=== PATIENT | male | born 1955 | race Caucasian/White ===

== ENCOUNTER 2020-02-02 11:30 | Inpatient (IN) ==
[2020-02-02] MEDS: QUEtiapine Fumarate 25 MG TABLET PO SCH (20:48)
[2020-02-02] MEDS: Lactobacillus 1 EACH CAP.SPRINK PO SCH (20:49)
[2020-02-02] MEDS: *HR* Amiodarone 200 MG TABLET PO SCH (20:49)
[2020-02-02] MEDS: Nystatin SUSP 5 ML UD.LIQ PO SCH (20:52)
[2020-02-02] MEDS: Artificial Tears SOLN 15 ML BOTTLE BOTH EYES SCH (20:57)
[2020-02-02] MEDS ORDERED: NON-FORMULARY MEDICATION 1 EACH EACH (Lactose-Reduced Food [Ensure Liquid] 1 BOTTLE) PO SCH (21:00)
[2020-02-02] MEDS: Levalbuterol Neb 0.63 MG/3 ML IH SCH ×2 (22:54→22:55)
[2020-02-02] MEDS: Budesonide/Formoterol 80/4.5 1 PUFF INH IH SCH (22:55)
[2020-02-02] MEDS: Ipratropium Neb 0.5 MG NEBULIZER IH SCH ×3 (22:55→23:03)
[2020-02-03] MEDS: Ipratropium Neb 0.5 MG NEBULIZER IH SCH ×6 (03:10→21:03)
[2020-02-03] MEDS: Levalbuterol Neb 0.63 MG/3 ML IH SCH ×6 (03:10→21:04)
[2020-02-03 07:24] LABS: Basophils # 0.1 K/mcL (0.0-0.2); Basophils % 0.4 %; Eosinophils # 0.2 K/mcL (0.0-0.6); Eosinophils % 1.1 %; Hematocrit 33.1 % (37.5-50.1); Hemoglobin 10.3 g/dL (12.9-16.9); Immature Granulocytes % 3.9 % (0-4); Lymphocytes # 1.4 K/mcL (0.6-4.6); Lymphocytes % 8.5 %; Mean Corpuscular HGB Conc 31.1 g/dL (31.6-35.5); Mean Corpuscular Hemoglobin 23.1 pg (28.0-33.3); Mean Corpuscular Volume 74.4 fL (83.0-100.0); Mean Platelet Volume 9.3 fL (9.4-12.4); Monocytes # 1.7 K/mcL (0.0-1.3); Monocytes % 10.8 %; Neutrophils # 12.1 K/mcL (1.6-8.9); Nucleated Red Blood Cells 0.2 /100 WBC (0); Platelet Count 279 K/mcL (140-400); Red Blood Count 4.45 M/mcL (4.19-5.50); Red Cell Distribution Width 24.2 % (11.5-14.5); Segmented Neutrophils % 75.3 %; White Blood Count 16.1 K/mcL (4.3-11.1)
[2020-02-03 07:25] LABS: eGFR For African Americans > 60 (> 60); eGFR For Non-African Americans > 60 (> 60)
[2020-02-03 07:35] LABS: Activated Partial Thrombo Time 24.6 Seconds (26.0-36.0); INR 1.1; Prothrombin Time 12.3 Seconds (9.4-12.1)
[2020-02-03] MEDS: Nystatin SUSP 5 ML UD.LIQ PO SCH ×4 (07:46→21:02)
[2020-02-03] MEDS: Lactobacillus 1 EACH CAP.SPRINK PO SCH ×2 (07:48→21:02)
[2020-02-03] MEDS: Nicotine 14 MG PATCH.TD24 TD SCH (07:48)
[2020-02-03] MEDS: *HR* Amiodarone 200 MG TABLET PO SCH ×2 (07:48→21:03)
[2020-02-03] MEDS: Aspirin Enteric Coated 81 MG Tablet PO SCH (07:48)
[2020-02-03] MEDS: Artificial Tears SOLN 15 ML BOTTLE BOTH EYES SCH ×4 (07:48→21:07)
[2020-02-03] MEDS: *HR* Digoxin 0.125 MG TABLET PO SCH (07:48)
[2020-02-03] MEDS: Metoprolol XL (24 HR) Succ 50 MG TAB.ER.24H PO SCH (07:49)
[2020-02-03] MEDS: Multivit/Ca/Min/Fe/FA 1 TAB TABLET PO SCH (07:49)
[2020-02-03] MEDS: Azithromycin 250 MG TABLET PO SCH (07:49)
[2020-02-03 07:59] LABS: Anisocytosis 1+ (Not Present); Platelet Estimate Normal (Normal); Toxic Granulation Present (Not Present)
[2020-02-03] MEDS ORDERED: predniSONE 10 MG TABLET PO SCH (09:00)
[2020-02-03] MEDS: Budesonide/Formoterol 80/4.5 1 PUFF INH IH SCH ×2 (09:54→21:04)
[2020-02-03] MEDS: clonazePAM 0.5 MG TABLET PO SCH ×2 (18:24→22:20)
[2020-02-03] MEDS: predniSONE 10 MG TABLET PO SCH (18:27)
[2020-02-03] MEDS ORDERED: clonazePAM 0.5 MG TABLET PO SCH (21:00)
[2020-02-03] MEDS: QUEtiapine Fumarate 25 MG TABLET PO SCH (21:02)
[2020-02-04] MEDS: Levalbuterol Neb 0.63 MG/3 ML IH SCH ×3 (04:25→08:50)
[2020-02-04] MEDS: Ipratropium Neb 0.5 MG NEBULIZER IH SCH ×3 (04:25→08:50)
[2020-02-04] MEDS: *HR* Digoxin 0.125 MG TABLET PO SCH (08:33)
[2020-02-04] MEDS: clonazePAM 0.5 MG TABLET PO SCH ×2 (08:33→19:30)
[2020-02-04] MEDS: Nystatin SUSP 5 ML UD.LIQ PO SCH ×4 (08:33→19:31)
[2020-02-04] MEDS: *HR* Amiodarone 200 MG TABLET PO SCH ×2 (08:33→19:30)
[2020-02-04] MEDS: Aspirin Enteric Coated 81 MG Tablet PO SCH (08:33)
[2020-02-04] MEDS: predniSONE 10 MG TABLET PO SCH (08:33)
[2020-02-04] MEDS: Artificial Tears SOLN 15 ML BOTTLE BOTH EYES SCH ×4 (08:33→19:31)
[2020-02-04] MEDS: Azithromycin 250 MG TABLET PO SCH (08:33)
[2020-02-04] MEDS: Metoprolol XL (24 HR) Succ 50 MG TAB.ER.24H PO SCH (08:33)
[2020-02-04] MEDS: Multivit/Ca/Min/Fe/FA 1 TAB TABLET PO SCH (08:34)
[2020-02-04] MEDS: Nicotine 14 MG PATCH.TD24 TD SCH (08:34)
[2020-02-04] MEDS: Lactobacillus 1 EACH CAP.SPRINK PO SCH ×2 (08:34→19:30)
[2020-02-04] MEDS: Budesonide/Formoterol 80/4.5 1 PUFF INH IH SCH ×2 (10:39→21:10)
[2020-02-04] MEDS: Ipratropium Neb 0.5 MG NEBULIZER IH PRN ×2 (10:39→16:01)
[2020-02-04] MEDS: Levalbuterol Neb 0.63 MG/3 ML IH PRN ×2 (10:39→16:01)
[2020-02-04] MEDS: *HR* LORazepam 0.5 MG TABLET PO PRN (14:38)
[2020-02-04] MEDS: QUEtiapine Fumarate 25 MG TABLET PO SCH (19:30)
[2020-02-04] MEDS ORDERED: Acetaminophen 325 MG TABLET PO PRN (20:00)
[2020-02-05] MEDS: Ipratropium Neb 0.5 MG NEBULIZER IH PRN ×3 (02:56→19:59)
[2020-02-05] MEDS: Levalbuterol Neb 0.63 MG/3 ML IH PRN ×3 (02:56→19:59)
[2020-02-05] MEDS: Nystatin SUSP 5 ML UD.LIQ PO SCH ×4 (09:10→20:05)
[2020-02-05] MEDS: Metoprolol XL (24 HR) Succ 50 MG TAB.ER.24H PO SCH (09:10)
[2020-02-05] MEDS: *HR* Amiodarone 200 MG TABLET PO SCH ×2 (09:10→20:05)
[2020-02-05] MEDS: Aspirin Enteric Coated 81 MG Tablet PO SCH (09:10)
[2020-02-05] MEDS: predniSONE 10 MG TABLET PO SCH (09:10)
[2020-02-05] MEDS: Artificial Tears SOLN 15 ML BOTTLE BOTH EYES SCH ×2 (09:11→17:24)
[2020-02-05] MEDS: *HR* Digoxin 0.125 MG TABLET PO SCH (09:11)
[2020-02-05] MEDS: Lactobacillus 1 EACH CAP.SPRINK PO SCH ×2 (09:11→20:06)
[2020-02-05] MEDS: Nicotine 14 MG PATCH.TD24 TD SCH (09:11)
[2020-02-05] MEDS: Azithromycin 250 MG TABLET PO SCH (09:11)
[2020-02-05] MEDS: clonazePAM 0.5 MG TABLET PO SCH ×2 (09:11→20:05)
[2020-02-05] MEDS: Multivit/Ca/Min/Fe/FA 1 TAB TABLET PO SCH (09:11)
[2020-02-05] MEDS: Budesonide/Formoterol 80/4.5 1 PUFF INH IH SCH ×2 (10:47→19:59)
[2020-02-05] MEDS: *HR* LORazepam 0.5 MG TABLET PO PRN (12:33)
[2020-02-05] MEDS ORDERED: Artificial Tears SOLN 15 ML BOTTLE BOTH EYES PRN (17:28)
[2020-02-05] MEDS ORDERED: Nicotine 14 MG PATCH.TD24 TD PRN (17:29)
[2020-02-05] MEDS: QUEtiapine Fumarate 25 MG TABLET PO SCH (20:05)
[2020-02-06] MEDS: clonazePAM 0.5 MG TABLET PO SCH ×3 (09:05→19:59)
[2020-02-06] MEDS: *HR* Amiodarone 200 MG TABLET PO SCH ×3 (09:05→19:59)
[2020-02-06] MEDS: Lactobacillus 1 EACH CAP.SPRINK PO SCH ×3 (09:05→19:59)
[2020-02-06] MEDS: Multivit/Ca/Min/Fe/FA 1 TAB TABLET PO SCH ×2 (09:05→11:36)
[2020-02-06] MEDS: Metoprolol XL (24 HR) Succ 50 MG TAB.ER.24H PO SCH ×2 (09:05→11:36)
[2020-02-06] MEDS: Nystatin SUSP 5 ML UD.LIQ PO SCH ×5 (09:05→21:20)
[2020-02-06] MEDS: predniSONE 10 MG TABLET PO SCH ×2 (09:05→11:39)
[2020-02-06] MEDS: Aspirin Enteric Coated 81 MG Tablet PO SCH ×2 (09:05→11:39)
[2020-02-06] MEDS: *HR* Digoxin 0.125 MG TABLET PO SCH ×2 (09:05→11:36)
[2020-02-06] MEDS: Azithromycin 250 MG TABLET PO SCH ×2 (09:06→11:38)
[2020-02-06] MEDS: Ipratropium Neb 0.5 MG NEBULIZER IH PRN ×3 (09:36→18:44)
[2020-02-06] MEDS: Levalbuterol Neb 0.63 MG/3 ML IH PRN ×3 (09:36→18:44)
[2020-02-06] MEDS: Budesonide/Formoterol 80/4.5 1 PUFF INH IH SCH ×3 (09:45→23:30)
[2020-02-06] MEDS: *HR* LORazepam 0.5 MG TABLET PO PRN (14:47)
[2020-02-06] MEDS: *HR* OxyCODONE/APAP 5/325 TABLET PO PRN (17:31)
[2020-02-06] MEDS: hydrOXYzine pamoate 25 MG CAPSULE PO PRN (19:59)
[2020-02-06] MEDS: QUEtiapine Fumarate 25 MG TABLET PO SCH (19:59)
[2020-02-07] MEDS: Ipratropium Neb 0.5 MG NEBULIZER IH PRN ×4 (04:32→21:29)
[2020-02-07] MEDS: Levalbuterol Neb 0.63 MG/3 ML IH PRN ×4 (04:33→21:30)
[2020-02-07] MEDS: Budesonide/Formoterol 80/4.5 1 PUFF INH IH SCH ×2 (09:18→21:38)
[2020-02-07] MEDS: predniSONE 10 MG TABLET PO SCH (09:28)
[2020-02-07] MEDS: *HR* Amiodarone 200 MG TABLET PO SCH ×2 (09:29→20:37)
[2020-02-07] MEDS: Metoprolol XL (24 HR) Succ 50 MG TAB.ER.24H PO SCH (09:29)
[2020-02-07] MEDS: *HR* Digoxin 0.125 MG TABLET PO SCH (09:29)
[2020-02-07] MEDS: clonazePAM 0.5 MG TABLET PO SCH ×2 (09:29→20:37)
[2020-02-07] MEDS: Azithromycin 250 MG TABLET PO SCH (09:29)
[2020-02-07] MEDS: Aspirin Enteric Coated 81 MG Tablet PO SCH (09:29)
[2020-02-07] MEDS: Multivit/Ca/Min/Fe/FA 1 TAB TABLET PO SCH (09:29)
[2020-02-07] MEDS: Lactobacillus 1 EACH CAP.SPRINK PO SCH ×2 (09:29→20:37)
[2020-02-07] MEDS: Nystatin SUSP 5 ML UD.LIQ PO SCH ×4 (09:33→21:52)
[2020-02-07] MEDS: hydrOXYzine pamoate 25 MG CAPSULE PO PRN ×2 (09:39→20:37)
[2020-02-07] MEDS: *HR* LORazepam 0.5 MG TABLET PO PRN (15:00)
[2020-02-07] MEDS: *HR* OxyCODONE/APAP 5/325 TABLET PO PRN (15:07)
[2020-02-07] MEDS: QUEtiapine Fumarate 25 MG TABLET PO SCH (20:37)
[2020-02-08] MEDS: *HR* LORazepam 0.5 MG TABLET PO PRN ×2 (04:36→17:17)
[2020-02-08] MEDS: hydrOXYzine pamoate 25 MG CAPSULE PO PRN ×2 (04:37→17:18)
[2020-02-08] MEDS: Levalbuterol Neb 0.63 MG/3 ML IH PRN ×3 (04:49→17:21)
[2020-02-08] MEDS: Ipratropium Neb 0.5 MG NEBULIZER IH PRN ×3 (04:49→17:21)
[2020-02-08] MEDS: Budesonide/Formoterol 80/4.5 1 PUFF INH IH SCH ×2 (09:41→23:20)
[2020-02-08] MEDS: Multivit/Ca/Min/Fe/FA 1 TAB TABLET PO SCH (10:34)
[2020-02-08] MEDS: Nystatin SUSP 5 ML UD.LIQ PO SCH ×5 (10:34→19:56)
[2020-02-08] MEDS: Lactobacillus 1 EACH CAP.SPRINK PO SCH ×2 (10:34→19:53)
[2020-02-08] MEDS: *HR* Amiodarone 200 MG TABLET PO SCH ×2 (10:34→19:53)
[2020-02-08] MEDS: predniSONE 10 MG TABLET PO SCH (10:34)
[2020-02-08] MEDS: Aspirin Enteric Coated 81 MG Tablet PO SCH (10:34)
[2020-02-08] MEDS: Metoprolol XL (24 HR) Succ 50 MG TAB.ER.24H PO SCH (10:34)
[2020-02-08] MEDS: *HR* OxyCODONE/APAP 5/325 TABLET PO PRN ×2 (10:34→19:53)
[2020-02-08] MEDS: Azithromycin 250 MG TABLET PO SCH (10:34)
[2020-02-08] MEDS: clonazePAM 0.5 MG TABLET PO SCH ×2 (10:34→19:53)
[2020-02-08] MEDS: *HR* Digoxin 0.125 MG TABLET PO SCH (10:35)
[2020-02-08] MEDS: QUEtiapine Fumarate 25 MG TABLET PO SCH (19:53)
[2020-02-09] MEDS: Levalbuterol Neb 0.63 MG/3 ML IH PRN ×2 (07:51→13:11)
[2020-02-09] MEDS: Ipratropium Neb 0.5 MG NEBULIZER IH PRN (07:51)
[2020-02-09] MEDS: Lactobacillus 1 EACH CAP.SPRINK PO SCH (10:04)
[2020-02-09] MEDS: clonazePAM 0.5 MG TABLET PO SCH (10:04)
[2020-02-09] MEDS: Nystatin SUSP 5 ML UD.LIQ PO SCH ×2 (10:05→12:09)
[2020-02-09] MEDS: predniSONE 10 MG TABLET PO SCH (10:05)
[2020-02-09] MEDS: Azithromycin 250 MG TABLET PO SCH (10:05)
[2020-02-09] MEDS: Aspirin Enteric Coated 81 MG Tablet PO SCH (10:05)
[2020-02-09] MEDS: Multivit/Ca/Min/Fe/FA 1 TAB TABLET PO SCH (10:05)
[2020-02-09 10:09] VITALS: BP 112/69
[2020-02-09] MEDS: Metoprolol XL (24 HR) Succ 50 MG TAB.ER.24H PO SCH (10:10)
[2020-02-09] MEDS: *HR* Digoxin 0.125 MG TABLET PO SCH (10:10)
[2020-02-09] MEDS: *HR* Amiodarone 200 MG TABLET PO SCH (10:10)
[2020-02-09] MEDS ORDERED: polyethylene glycoL 3350 17 GM POWD.PACK PO SCH (11:30)
[2020-02-09] MEDS: Budesonide/Formoterol 80/4.5 1 PUFF INH IH SCH (12:39)
== END 2020-02-09 16:23 | disposition home health service (06) | DRG 190 ==
LOC: INPPIK 19:21
PROVIDERS: ADMIT Family Medicine; ATTEND Family Medicine